=== PATIENT | female | born 1950 | race Caucasian/White ===

== ENCOUNTER 2019-04-13 15:18 | Outpatient (CLI) | payer MEDICARE, OTHER, SELFPAY ==
--- NOTE | 2019-04-13 15:04 | DI.RAD_ITS ---
EXAM: XR HIP LT COMPLETE AND AP PELVIS INDICATION: LEFT HIP PAIN M25.552. COMPARISON: No exams were available for comparison TECHNIQUE: 2D digital imaging was performed. FINDINGS: There is mild narrowing of the left hip joint space. There is spurring from the left acetabulum and left femoral head. Degenerative changes are seen involving the SI joints, left greater than right. There is mild acetabular spurring of the right hip. IMPRESSION: Moderate degenerative changes of the left hip and left SI joint.
--- NOTE | 2019-04-13 15:06 | DI.RAD_ITS ---
EXAM: XR LUMBAR SPINE COMPLETE INDICATION: LEFT LBP M54.5. COMPARISON: No exams were available for comparison TECHNIQUE: 2D digital imaging was performed. FINDINGS: There is a moderate compression fracture of L1. No additional compression fractures are seen. There is narrowing of the L3-4 and L4-5 disc spaces. There are facet degenerative changes greatest at L4- 5. IMPRESSION: L1 compression fracture. Degenerative changes of the lower lumbar spine.
[2019-04-13 17:41] LABS: ALT 35 U/L (14-59); AST 21 U/L (15-37); Albumin 3.5 g/dL (3.4-5.0); Alkaline Phosphatase 90 U/L (46-116); Anion Gap 9.2 mmol/L (3-11); BUN 18 mg/dL (7-18); Bilirubin, Total 0.4 mg/dL (0.2-1.0); CO2 26.8 mmol/L (21.0-32.0); CREATININE 0.83 mg/dL (0.55-1.02); Calcium 8.6 mg/dL (8.5-10.1); Chloride 97 mmol/L (98-107); Glucose 89 mg/dL (74-106); Potassium 4.7 mmol/L (3.5-5.1); Sodium 133 mmol/L (136-145); Total Protein 7.1 g/dL (6.4-8.2)
[2019-04-13 19:25] LABS: Vitamin D 25 Total 28.6 ng/ml (30-100)
== END 2019-04-13 15:38 ==
PROVIDERS: PCP Family Medicine; Visit Provider Family Medicine
DX: M54.5 Low back pain (principal); M48.56XD Collapsed vertebra, not elsewhere classified, lumbar region, subsequent encounter for fracture with routine healing; M47.816 Spondylosis without myelopathy or radiculopathy, lumbar region; M25.552 Pain in left hip; M16.12 Unilateral primary osteoarthritis, left hip; M53.3 Sacrococcygeal disorders, not elsewhere classified; R42 Dizziness and giddiness
CPT/HCPCS: 36415; 80053; 82306; 72110; 73502

== ENCOUNTER 2019-04-14 01:20 | Outpatient (CLI) | payer MEDICARE, OTHER, SELFPAY ==
--- NOTE | 2019-04-14 16:01 | DI.MAMMO_ITS ---
EXAM: MAMMO SCREENING CLINICAL HISTORY: screening Z12.39. TECHNIQUE: Full field digital CC and MLO mammographic images were obtained with 3D tomosynthesis and utilizing computer aided detection (CAD). COMPARISON: 2009 to 2014 FINDINGS: Breast Density - Category B - Scattered areas of fibroglandular density Masses/Architectural Distortion: None seen. Microcalcifications: No suspicious pleomorphic-type calcifications are seen. Skin Thickening/Nipple Retraction: None. Axilla: Unremarkable. IMPRESSION: 1. BI-RADS category 1, negative. No significant interval change with no specific features of maligna ncy noted. 2. Unless there is more urgent need, screening mammography is recommended, as per [employer] guidelines. A negative radiographic report should not delay biopsy if a dominant or clinically suspicious mass is present. Up to ten percent of cancers are not identified on mammography. A negative report may reinforce clinical impression. Adenosis and dense breasts may obscure an underlying neoplasm. False positive reports average 6 to 10%. Patient will receive a letter notifying them of these results.
== END 2019-04-14 01:40 ==
PROVIDERS: PCP Family Medicine; Visit Provider Family Medicine
DX: Z12.31 Encounter for screening mammogram for malignant neoplasm of breast (principal)
CPT/HCPCS: 77063; 77067

== ENCOUNTER 2019-09-08 01:34 | Outpatient (CLI) | payer MEDICARE, SELFPAY ==
--- NOTE | 2019-09-08 13:15 | DI.DEXA_ITS ---
EXAM: XR DEXA BONE DENSITY W/WO MEGAN CLINICAL HISTORY: OSTEOPENIA, M85.80 TECHNIQUE: DEXA scan was performed according to the usual protocol. COMPARISON: CR XR LUMBAR SPINE COMPLETE from 04/13/2019 FINDINGS: Findings for left hip scanning are T-score of -2.4 with left femoral neck T-score of -2.4. Prior scan of February 2008 showed left hip T-score of -1.3. Lumbar spine scanning shows T-score of -3.3, prior study of 2007 showed lumbar T-score of -2.2. Left forearm scanning shows T-score of -3.4. IMPRESSION: Findings consistent with osteoporosis according to the WHO criteria. There is a vertebral compressio n fracture noted at what appears to be L1.
== END 2019-09-08 01:54 ==
PROVIDERS: PCP Family Medicine; Visit Provider Nurse Practitioner Adult Health
DX: M81.0 Age-related osteoporosis without current pathological fracture (principal); M85.88 Other specified disorders of bone density and structure, other site
CPT/HCPCS: 77080

== ENCOUNTER 2021-06-09 03:41 | Outpatient (CLI) | payer MEDICARE, SELFPAY ==
[2021-06-09 09:54] LABS: TSH (W/Ref FT4) 1.85 uIU/mL (0.36-3.74)
[2021-06-12 06:24] LABS: Vitamin D 25 Total 31.6 ng/mL (30-100)
[2021-06-12 14:07] LABS: Thyroglobulin Antibody <1.8 IU/mL (<1.8); Thyroglobulin Tumor Marker 17 ng/mL
== END 2021-06-09 03:42 | disposition home or self-care (01) ==
LOC: LBO 03:42
PROVIDERS: PCP Family Medicine; Visit Provider Family Medicine
DX: M85.88 Other specified disorders of bone density and structure, other site (principal); Z80.8 Family history of malignant neoplasm of other organs or systems; R00.2 Palpitations
CPT/HCPCS: 36415; 82306; 84432; 84443; 86800

== ENCOUNTER 2021-07-25 00:57 | Outpatient (CLI) | payer MEDICARE, SELFPAY ==
--- NOTE | 2021-07-25 08:00 | DI.US_ITS ---
Exam(s) US THYROID EXAM: US THYROID CLINICAL HISTORY: thyroid enlargement right, fam hx thyroid neoplasm, thyroid disorder. TECHNIQUE: Ultrasound thyroid performed using standard protocol. COMPARISON: US AAA SCREENING from 04/16/2017 FINDINGS: RIGHT THYROID LOBE: Measures 1.3 cm AP x 1.1 cm wide x 4.6 cm craniocaudal There are few small benign colloid cysts. In addition, there are 2 small solid nodules right lobe. Nodule #1. This is the more superior of the 2 nodules. Size: Measures 5 millimeters wide by 3 millimeters AP Composition: Solid-2 points Echogenicity: Slightly hypoechoic compared to surrounding parenchyma-2 points Shape: Wider than taller-0 points Margin: Smooth- 0 points Echogenic Foci: None-0 points Total Points for this nodule: 4 ACR Ti-Rads Category: TR4 This nodule can be followed and does not need ultrasound-guided biopsy at this time. Nodule #2. This is located more inferiorly in the right lobe. Size: Measures 5 x 3 millimeter Composition: Solid-2 points Echogenicity: Mildly hypoechoic-2 points Shape: Wider than taller- 0 points Margin: Smooth-0 points Echogenic Foci: None-0 points Total points for this nodule: 4 ACR Ti-Rads Category: TR4. This nodule can be followed and does not need ultrasound-guided biopsy at this time. ISTHMUS: Normal thickness. There are no nodules in the isthmus. LEFT THYROID LOBE: Measures 1.3 cm AP x 1.4 wide x 4.3 cm craniocaudal Nodule #1 . This is the more superior of the 2 nodules. Size: Measures 4 millimeters wide by 3 millimeters AP. Composition: Solid-2 points Echogenicity: Isoechoic-1 points Shape: Wider than taller-0 points Margin: Smooth-0 points Echogenic Foci: None-0 points Total points for this nodule: 3 ACR Ti-Rads Category: 3. This nodule can be followed and does not need ultrasound-guided biopsy at this time. Nodule #2 . this finding is located more inferiorly Size: Measures 7 x 5 millimeter Composition: Cystic-0 points Echogenicity: Anechoic-0 points Shape: Wider than taller-0 points Margin: Smooth-0 points Echogenic Foci: None-0 points Total Points for this nodule: 0 ACR Ti-Rads Category: 1 This is a benign cyst and does not require biopsy LYMPH NODES: There is no significant adenopathy. IMPRESSION: Bilateral benign-appearing findings as described individually above. None of the nodules described above require ultrasound-guided biopsy. There is no significant lymphadenopathy. DATA REPOSITORY:
--- NOTE | 2021-07-25 08:00 | DI.MAMMO_ITS ---
Exam(s) MAMMO SCREENING EXAM: MAMMO SCREENING CLINICAL HISTORY: screening, Z12.39. TECHNIQUE: Bilateral full field digital CC and MLO mammographic images were obtained with 3D tomosyn thesis and utilizing computer aided detection (CAD). COMPARISON: Prior mammograms were reviewed, the most recent being April 2019. FINDINGS: No new significant radiograph findings in right breast. Asymmetric tissue in left breast is unchanged from prior studies. On the CC view the asymmetric dens ities are unchanged from 2012. There are no new spiculated masses nor malignant appearing microcalcification groups. There is no significant architectural distortion nor skin thickening-retraction. IMPRESSION: Stable benign findings. No radiographic evidence of malignancy. BI-RADS Category 2 - Benign Findings Breast Density - Category B - Scattered areas of fibroglandular density Breast density Category C or D implies that the patient has dense breast tissue. Dense breast tissue can make it harder to find cancer on a mammogram. Dense breast tissue is also associated with an incr eased risk of breast cancer. This information about the result of the mammogram report was provided to the patient to raise their awareness. Use this report when you speak with the patient about their risks for breast cancer, which includes their family history. At that time, you may recommend additional screening tests (Ultrasoun d or MRI) as these tests may add significant information. A negative radiographic report should not delay biopsy if a dominant or clinically suspicious mass is present. Up to ten percent of cancers are not identified on mammography. A negative report may reinforce clinical impression. Adenosis and dense breasts may obscure an underlying neoplasm. False positive reports average 6 to 10%. Patient will receive a letter notifying them of these results.
== END 2021-07-25 01:17 ==
PROVIDERS: PCP Family Medicine; Visit Provider Family Medicine
DX: Z12.31 Encounter for screening mammogram for malignant neoplasm of breast (principal); E07.9 Disorder of thyroid, unspecified; Z80.8 Family history of malignant neoplasm of other organs or systems; E04.2 Nontoxic multinodular goiter
CPT/HCPCS: 77063; 77067; 76536

== ENCOUNTER 2021-09-21 10:05 | Outpatient (REF) | payer MEDICARE, SELFPAY ==
--- NOTE | 2021-09-21 09:40 | SKI_PTH ---
PATIENT: Dora Underwood LOC: [facility] U#:[id number] AGE/SX: 70/F ROOM: RE09/21/[address]: Grant Cardoza DO : 1950 BED: DIS: 09/21/2021 SPEC #: [id number] RECD: 09/21/21 12:49 STATUS: MAGALYS REQ #: [id number] VIRAJ: 09/21/21 09:[address]: Grant Cardoza DEPT: Surgical Specimen RECD BY: Nidhi Hayward ENTERED: 09/21/21 12:50 SP TYPE: SKI OTHR DR: Sirisha Garcia MD, DC Tissues: 1 - SKIN BIOPSY(SHAVE/PUNCH) Procedures: SKIN LEVEL 4 Comments: [id number]
== END 2021-09-21 10:06 | disposition home or self-care (01) ==
LOC: LBN 10:05
PROVIDERS: PCP Family Medicine; Visit Provider Emergency Medicine
DX: L57.0 Actinic keratosis (principal); L43.8 Other lichen planus
CPT/HCPCS: 88305

== ENCOUNTER 2023-01-08 15:09 | Outpatient (REF) | payer MEDICARE, SELFPAY | END 2023-01-08 15:10 | disposition home or self-care (01) | LOC: LBN 15:09 | PROVIDERS: PCP Family Medicine; Visit Provider Nurse Practitioner Family | DX: N30.01 Acute cystitis with hematuria (principal) | CPT/HCPCS: 87077; 87086; 87186 ==

== ENCOUNTER 2023-01-16 21:23 | Outpatient (REF) | payer MEDICARE, SELFPAY ==
[2023-01-16 21:43] LABS: Bilirubin Negative (Negative); Blood Negative (Negative); Clarity Clear (Clear); Glucose Negative (Negative); Ketones Negative (Negative); Leukocyte Esterase Small (Negative); Nitrite Negative (Negative); Urobilinogen 0.2 mg/dL (Up to 0.2); pH 6.5 (5-8)
[2023-01-16 21:52] LABS: Bacteria Few HPF (Negative); C & S Indicated? No/Sq. Contamination; Crystals Negative HPF (Negative); Epithelial Cells Many HPF (Negative); Mucus Negative (Negative); RBC Negative HPF (0-2)
== END 2023-01-16 21:24 | disposition home or self-care (01) ==
LOC: LBN 21:23
PROVIDERS: PCP Family Medicine; Visit Provider Family Medicine
DX: N39.0 Urinary tract infection, site not specified (principal)
CPT/HCPCS: 81003; 81015

== ENCOUNTER 2023-01-22 15:41 | Outpatient (REF) | payer MEDICARE, SELFPAY ==
[2023-01-22 16:06] LABS: Bilirubin Negative (Negative); Blood Negative (Negative); Clarity Clear (Clear); Glucose Negative (Negative); Ketones Negative (Negative); Leukocyte Esterase Negative (Negative); Nitrite Negative (Negative); Specific Gravity 1.015 (1.005-1.025); Urobilinogen 0.2 mg/dL (Up to 0.2)
== END 2023-01-22 15:42 | disposition home or self-care (01) ==
LOC: LBN 15:41
PROVIDERS: PCP Family Medicine; Visit Provider Family Medicine
DX: R35.0 Frequency of micturition (principal)
CPT/HCPCS: 81003

== ENCOUNTER → 2023-02-07 01:18 | Outpatient (CLI) | payer MEDICARE, SELFPAY ==
--- NOTE | 2023-02-07 07:00 | DI.DEXA_ITS ---
Exam(s) XR DEXA BONE DENSITY W/WO MEGAN EXAM: XR DEXA BONE DENSITY W/WO MEGAN CLINICAL HISTORY: SCREENING FOR OSTEOPOROSIS IN POSTMENOPAUSAL WOMAN,Z78.0 TECHNIQUE: COMPARISON: CR XR DEXA BONE DENSITY W/WO MEGAN from 09/08/2019 FINDINGS: Lateral Spine Image: There are stable upper lumbar superior endplate compression deformities. Left hip: Total T-Score: -2.4. This compares to -2.4 on the prior examination. Total Z-Score: -0.8 T- and Z-scores: Findings are consistent with osteopenia. Lumbar Spine: Total T-Score: -3.0. This compares to -3.3 on the prior examination. Total Z-Score: -0.8 T- and Z-scores: Findings are consistent with osteoporosis. IMPRESSION: Osteoporosis in the lumbar spine.
--- NOTE | 2023-02-07 08:10 | DI.MAMMO_ITS ---
Exam(s) MAMMO SCREENING EXAM: MAMMO SCREENING CLINICAL HISTORY: screening,Z12.39 TECHNIQUE: Bilateral full field digital CC and MLO mammographic images were obtained with 3D tomosyn thesis and utilizing computer aided detection (CAD). COMPARISON: Available for comparison. FINDINGS: Masses/Architectural Distortion: None seen. Microcalcifications: No suspicious pleomorphic-type are seen. Skin Thickening/Nipple Retraction: None. IMPRESSION: 1. No significant interval change with no specific features of malignancy noted. 2. Unless there is more urgent need, screening mammography is recommended, as per [employer] guidelines. BI-RADS Category 1 - Negative Breast Density - Category B - Scattered areas of fibroglandular density Breast density category C or D implies that the patient has dense breast tissue. Dense breast tissue is very common and is not abnormal but dense breast tissue can make it harder to find cancer on a ma mmogram. Also, dense breast tissue may increase their breast cancer risk. This information about the result of the mammogram report was provided to the patient to raise their awareness. Use this report when you speak with the patient about their risks for breast cancer, which includes their family hist ory. At that time, you may recommend for more screening tests (Ultrasound or MRI) as they might be us eful based on their risk. A negative radiographic report should not delay biopsy if a dominant or clinically suspicious mass is present. Up to ten percent of cancers are not identified on mammography. A negative report may reinforce clinical impression. Adenosis and dense breasts may obscure an underlying neoplasm. False positive reports average 6 to 10%. Patient will receive a letter notifying them of these results.
== END ==
PROVIDERS: PCP Family Medicine; Visit Provider Family Medicine
DX: Z78.0 Asymptomatic menopausal state (principal); Z12.31 Encounter for screening mammogram for malignant neoplasm of breast; Z13.820 Encounter for screening for osteoporosis; M81.0 Age-related osteoporosis without current pathological fracture
CPT/HCPCS: 77063; 77067; 77080

== ENCOUNTER 2023-08-27 05:19 | Outpatient (CLI) | payer MEDICARE, SELFPAY ==
[2023-08-27 07:45] LABS: HCT 38.2 % (36.0-46.0); HGB 13.2 g/dL (11.2-15.7); MCH 31.5 pg (27.0-33.0); MCHC 34.6 % (32.0-36.0); MCV 91 fL (80-95); Platelet Count 259 10^3/uL (130-400); RBC 4.19 10^6/uL (3.93-5.22); RDW 12.7 % (11.7-14.6); RDW-SD 41.8 fL; WBC 3.94 10^3/uL (4.4-10.8)
[2023-08-27 08:37] LABS: ALT 24 U/L (14-59); AST 20 U/L (15-37); Albumin 3.7 g/dL (3.4-5.0); Alkaline Phosphatase 93 U/L (46-116); Anion Gap 9.4 mmol/L (3-11); BUN 16 mg/dL (7-18); Bilirubin, Total 0.9 mg/dL (0.2-1.0); CO2 26.6 mmol/L (21.0-32.0); CREATININE 0.7 mg/dL (0.55-1.02); Calculated LDL 145 mg/dL (<100); Chloride 101 mmol/L (98-107); Cholesterol 213 mg/dL (<200); Estimated GFR 91.83 (mL/min/1.73m2); Glucose 88 mg/dL (74-106); HDL Cholesterol 59 mg/dL (40-60); Magnesium 1.9 mg/dL (1.8-2.4); Potassium 3.9 mmol/L (3.5-5.1); Sodium 137 mmol/L (136-145); Total Protein 7.3 g/dL (6.4-8.2); Triglyceride 49 mg/dL (<150); Vitamin B12 990 pg/mL (193-986)
[2023-08-27 08:52] LABS: Vitamin D 25 Total 49.1 ng/mL (30-100)
== END 2023-08-27 05:20 | disposition home or self-care (01) ==
PROVIDERS: PCP Family Medicine; Visit Provider Family Medicine
DX: I10 Essential (primary) hypertension (principal); R41.89 Other symptoms and signs involving cognitive functions and awareness
CPT/HCPCS: 36415; 80053; 80061; 82306; 85027; 82607; 83735

== ENCOUNTER 2023-09-05 16:41 | Outpatient (REF) | payer MEDICARE, SELFPAY ==
[2023-09-05 20:32] LABS: Bilirubin Negative (Negative); Blood Small (Negative); Clarity Clear (Clear); Glucose Negative (Negative); Ketones Negative (Negative); Leukocyte Esterase Large (Negative); Nitrite Negative (Negative); Urobilinogen 0.2 mg/dL (Up to 0.2); pH 7.5 (5-8)
[2023-09-05 20:36] LABS: WBC >50 HPF (0-5)
[2023-09-05 20:37] LABS: Bacteria Few HPF (Negative); C & S Indicated? No/Sq. Contamination; Casts Negative LPF (Negative); Crystals Negative HPF (Negative); Epithelial Cells Many HPF (Negative); Mucus Negative (Negative)
== END 2023-09-05 16:42 | disposition home or self-care (01) ==
LOC: NCHCN 16:41
PROVIDERS: PCP Family Medicine; Visit Provider Nurse Practitioner Family
DX: R35.0 Frequency of micturition (principal); R82.89 Other abnormal findings on cytological and histological examination of urine
CPT/HCPCS: 81003; 81015

== ENCOUNTER 2023-09-06 10:52 | Outpatient (REF) | payer MEDICARE, SELFPAY | END 2023-09-06 10:53 | disposition home or self-care (01) | LOC: LBN 10:52 | PROVIDERS: PCP Family Medicine; Visit Provider Nurse Practitioner Family | DX: R31.9 Hematuria, unspecified (principal); R82.89 Other abnormal findings on cytological and histological examination of urine | CPT/HCPCS: 87086 ==

== ENCOUNTER 2023-09-19 16:35 | Outpatient (REF) | payer MEDICARE, SELFPAY ==
[2023-09-19 18:34] LABS: Bilirubin Negative (Negative); Blood Negative (Negative); Clarity Clear (Clear); Glucose Negative (Negative); Ketones Negative (Negative); Leukocyte Esterase Small (Negative); Nitrite Negative (Negative); Urobilinogen 0.2 mg/dL (Up to 0.2)
[2023-09-19 18:36] LABS: Bacteria Few HPF (Negative); C & S Indicated? No/Sq. Contamination; Casts Negative LPF (Negative); Crystals Negative HPF (Negative); Epithelial Cells Moderate HPF (Negative); Mucus Negative (Negative); RBC Negative HPF (0-2)
== END 2023-09-19 16:36 | disposition home or self-care (01) ==
LOC: NCHCN 16:35
PROVIDERS: PCP Family Medicine; Visit Provider Family Medicine
DX: N39.0 Urinary tract infection, site not specified (principal)
CPT/HCPCS: 81003; 81015

== ENCOUNTER 2023-09-25 15:47 | Outpatient (REF) | payer MEDICARE, SELFPAY ==
--- OUTSIDE RECORDS SUMMARY | 2023-09-25 15:53 | XMS_ITS | Continuity of Care Document ---
Author Name Unknown Organization 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 Name Role Phone VERENA MACHADO DC, MISBAH Martinez Primary Care Physician Encounter [facility]TT[facility] FIN NBR [id number] Date(s): 09/08/23 - 09/08/[address] [address] Encounter Diagnosis Urinary tract infection, site not specified(Final) - Discharge Disposition: Home or Self Care Attending Physician: Kareem Cardenas PA-C Admitting Physician: Kareem Cardenas PA-C Allergies, Adverse Reactions, Alerts Substance Reaction Severity Status sulfa drugs Headache Mild Active Assessment and Plan Diagnostic Tests Pending * Urine Culture 09/08/23 Medications estradiol 0.5 mg oral tablet 0 Refill(s) Start Date: 09/08/23 Status: Ordered nitrofurantoin macrocrystals-monohydrate 100 mg oral capsule 100 mg = 1 cap, Oral, BID, # 20 cap, 0 Refill(s), Pharmacy: [facility] #[id number] Start Date: 09/08/23 Stop Date: 09/18/23 Status: Ordered Patient Care team information Care Team Personnel Name: VERENA MACHADO DC, MISBAH Martinez Position: No Access Member Role: Primary Care Physician Address: Address: [address] [id number] Care Team Related Persons Name: GINO BOWER Address: Home [address] [place] [address] [facility] Name: GINO BOWER Address: Home [address] [place] [address] [facility] Name: ALBINO BOWER Address: Home [address] [place], [place] [id number] [facility] Name: ALBINO BOWER Address: Home [address] [place] [phone] [facility] Name: MARK BOWER Address: [place] [address] [place], [place] [id number] [facility] Name: MARK BOWER Address: [address] [id number] [facility]
--- OUTSIDE RECORDS SUMMARY | 2023-09-25 15:53 | XMS_ITS | Continuity of Care Document ---
Author Name Unknown Organization [facility] Ambulatory Clinics Address [address] [place] [address] Care Team Providers Care Adjustment Examiner Name Role Phone VERENA MACHADO,DC, MISBAH Martinez Primary Care Physician Encounter [facility] NBR [id number] Date(s): 09/08/23 - 09/08/23 [facility] Ambulatory Clinics [address], [place] [address] [place] Encounter Diagnosis Urinary tract infection(Discharge Diagnosis) - 09/08/23 Discharge Disposition: Home or Self Care Attending Physician: Kareem Cardenas PA-C Allergies, Adverse Reactions, Alerts Substance Reaction Severity Status sulfa drugs Headache Mild Active Assessment and Plan Extracted from: Title:Office Visit Note Author:Kareem Cardenas PA-C Date:09/08/23 1.??Urinary tract infection? ?N39.0 Ordered: nitrofurantoin macrocrystals-monohydrate 100 mg oral capsule, 100 mg = 1 cap, Oral, BID, # 20 cap, 0 Refill(s), Pharmacy: [facility] #[id number] nitrofurantoin, 100 mg, Oral, Tab, BID, Antibiotic Indication Urinary Tract Infection, First Dose: 09/08/23 21:00:00 EDT, Routine Urine Culture, Urine, Clean Catch, Routine collect, RT - Routine, 09/08/23, Once, Nurse collect, Urinary tract infection, Order for future visit, Not Required ?? Medications estradiol 0.5 mg oral tablet 0 Refill(s) Start Date: 09/08/23 Status: Ordered nitrofurantoin macrocrystals-monohydrate 100 mg oral capsule 100 mg = 1 cap, Oral, BID, # 20 cap, 0 Refill(s), Pharmacy: [facility] #[id number] Start Date: 09/08/23 Stop Date: 09/18/23 Status: Ordered Results Laboratory List Name Date .Urinalysis POCT 09/08/23 Most recent to oldest [Reference Range]: 1 Method of Collect POC clean catch *NA* (09/08/23 4:44 PM) Specific Pollock, Ur POC 1.020 *NA* (09/08/23 4:44 PM) Specimen Color POC [Yellow] Yellow (09/08/23 4:44 PM) Glucose, Urine POC Negative mg/dL *NA* (09/08/23 4:44 PM) Bilirubin, Urine POC [Negative] Negative (09/08/23 4:44 PM) Ketones, Urine POC [Negative mg/dL] 40 m g/dL *ABN* (09/08/23 4:44 PM) Blood, Urine POC [Negative] Moderate *ABN* (09/08/23 4:44 PM) pH, Urine POC 6.00 *NA* (09/08/23 4:44 PM) Protein, Urine POC [Negative mg/dL] 30 m g/dL *ABN* (09/08/23 4:44 PM) Urobilinogen, Urine POC [0.2] 0.2 (09/08/23 4:44 PM) Nitrite, Urine POC [Negative] Positive *ABN* (09/08/23 4:44 PM) Leuk Esterase, Urine POC [Negative] Larg e *ABN* (09/08/23 4:44 PM) Clarity, Urine POC [Clear] Cloudy *ABN* (09/08/23 4:44 PM) Vital Signs Most recent to oldest [Reference Range]: 1 Temperature Tympanic [36.6-38.1 Deg C] 3 6.9 Deg C (09/08/23 4:47 PM) Peripheral Pulse Rate [60-100 bpm] 84 bp m (09/08/23 4:47 PM) Respiratory Rate [12-24 br/min] 20 br/mi n (09/08/23 4:47 PM) Blood Pressure [90-140/60-90 mmHg] 148/8 3mmHg *HI* (09/08/23 4:47 PM) Mean Arterial Pressure, Cuff [65-140 mmH g] 105 mmHg (09/08/23 4:47 PM) Hospital Discharge Instructions Patient Education 09/08/2023 16:36:01 Urinary Tract Infection, Adult Urinary Tract Infection, Adult A urinary tract infection (UTI) is an infection of any part of the urinary tract. The urinary tractincludes the kidneys, ureters, bladder, and urethra. These organs make, store, and get rid of urinein the body. An upper UTI affects the ureters and kidneys. A lower UTI affects the bladder and urethra. What are the causes? Most urinary tract infections are caused by bacteria in your genital area around your urethra, where urine leaves your body. These bacteria grow and cause inflammation of your urinary tract. What increases the risk? You are more likely to develop this condition if: ??? You have a urinary catheter that stays in place. ??? You are not able to control when you urinate or have a bowel movement (incontinence). ??? You are female and you: ??? Use a spermicide or diaphragm for control. ??? Have low estrogen levels. ??? Are . ??? You have certain genes that increase your risk. ??? You are sexually active. ??? You take antibiotic medicines. ??? You have a condition that causes your flow of urine to slow down, such as: ??? An enlarged prostate, if you are male. ??? Blockage in your urethra. ??? A kidney stone. ??? A nerve condition that affects your bladder control (neurogenic bladder). ??? Not getting enough to drink, or not urinating often. ??? You have certain medical conditions, such as: ??? Diabetes. ??? A weak disease-fighting system (immunesystem). ??? Sickle cell disease. ??? Gout. ??? Spinal cord injury. What are the signs or symptoms? Symptoms of this condition include: ??? Needing to urinate right away (urgency). ??? Frequent urination. This may include small amounts of urine each time you urinate. ??? Pain or burning with urination. ??? Blood in the urine. ??? Urine that smells bad or unusual. ??? Trouble urinating. ??? Cloudy urine. ??? Vaginal discharge, if you are female. ??? Pain in the abdomen or the lower back. You may also have: ??? Vomiting or a decreased appetite. ??? Confusion. ??? Irritability or tiredness. ??? A fever or chills. ??? Diarrhea. The first symptom in older adults may be confusion. In some cases, they may not have any symptoms until the infection has worsened. How is this diagnosed? This condition is diagnosed based on your medical history and a physical exam. You may also have other tests, including: ??? Urine tests. ??? Blood tests. ??? Tests for STIs (sexually transmitted infections). If you have had more than one UTI, a cystoscopy or imaging studies may be done to determine the cause of the infections. How is this treated? Treatment for this condition includes: ??? Antibiotic medicine. ??? Hlqs-wzq-jfrwyjb medicines to treat discomfort. ??? Drinking enough water to stay hydrated. If you have frequent infections or have other conditions such as a kidney stone, you may need to see a health care provider who specializes in the urinary tract (urologist). In rare cases, urinary tract infections can cause sepsis. Sepsis is a life- threatening condition that occurs when the body responds to an infection. Sepsis is treated in the hospital with IV antibiotics, fluids, and other medicines. Follow these instructions at home: Medicines ??? Take zthw-amr-wsbisza and prescription medicines only as told by your health care provider. ??? If you were prescribed an antibiotic medicine, take it as told by your health care provider. Donot stop using the antibiotic even if you start to feel better. General instructions ??? Make sure you: ??? Empty your bladder often and completely. Do not hold urine for long periods of time. ??? Empty your bladder after sex. ??? Wipe from front to back after urinating or having a bowel movement if you are female. Use each tissue only one time when you wipe. ??? Drink enough fluid to keep your urine pale yellow. ??? Keep all follow-up visits. This is important. Contact a health care provider if: ??? Your symptoms do not get better after 1???2 days. ??? Your symptoms go away and then return. Get help right away if: ??? You have severe pain in your back or your lower abdomen. ??? You have a fever or chills. ??? You have nausea or vomiting. Summary ??? A urinary tract infection (UTI) is an infection of any part of the urinary tract, which includes the kidneys, ureters, bladder, and urethra. ??? Most urinary tract infections are caused by bacteria in your genital area. ??? Treatment for this condition often includes antibiotic medicines. ??? If you were prescribed an antibiotic medicine, take it as told by your health care provider. Donot stop using the antibiotic even if you start to feel better. ??? Keep all follow-up visits. This is important. This information is not intended to replace advice given to you by your health care provider. Make sure you discuss any questions you have with your health care provider. Document Revised: 11/04/2020 Document Reviewed: 11/04/2020 [employer] Patient Education ?? 2022 [employer]. Physician Outpatient Note * Kareem Cardenas PA-C: PERFORM Event Display: Office Clinic Note Physician Authored Date: [id number] JULIO CÉSAR BOWER :1950 Age:72 years Sex:Female Visit Date:09/08/2023 Chief Complaint Thinks she has a UTI. Reports Saturday symptoms started. Minimal urination. Urinary hesitancy, ??and urgency. Saw provider and had urine dipped but was told would not have answer until Saturday History of Present Illness 72-year-old female patient who presents to the emergency department??complaining of urinary tract infection symptoms.?? The patient reports her??abrupt onset of urinary frequency, with incomplete emptying,??for the last??5 days,??the symptoms are consistent with her prior episodes of urinary tract infection.?? She reports no systemic complaints of fevers or chills, no belly pain, nausea or vomiting.?? She reports no dysuria, change in stooling. Review of Systems Constitutional:??no??fever,??no??chills,??no??sweats,??no??weakness Respiratory:??no??shortness of breath,??no??cough Cardiovascular:??no??chest pain Additional ROS info: Except as noted in the above Review of Systems and in the History of Present Illness all other systems have been reviewed and are negative or noncontributory.?? Physical Exam Vitals & Measurements T:??36.9?C ??(Tympanic)?? HR:??84??(Peripheral)?? RR:??20?? BP:??148/83?? SpO2:??100%?? Vital signs reviewed,?? They appear within normal limits, the patient appears her documented age, in no acute distress ?? GENERAL APPEARANCE: Awake and alert. Cooperative. No acute distress. ?? HEAD: Normocephalic. Atraumatic. ?? EYES: EOM's grossly intact. Sclera anicteric. ?? ENT: Mucous membranes are moist. Tolerates saliva. No trismus. ?? NECK: Supple. No meningismus. Trachea midline. ?? HEART: RRR, no m/r/g. Radial pulses 2+. ?? LUNGS: Respirations unlabored. CTAB, no w/r/r. ?? EXTREMITIES: No acute deformities. ?? SKIN: Warm and dry. ?? NEUROLOGICAL: No gross facial drooping. Moves all 4 extremities spontaneously. ?? PSYCHIATRIC: Normal mood. Medical Decision Making: ??the patient is seen and examined, she presents to the emergency department with UTI symptoms,??similar to her prior episodes.?? Afebrile, in no acute distress with an essentially normal exam.?? Kwlxb-sq-ygfw testing of the urine here in the emergency department is positive for urinary tract infection.?? A urine sample was sent to the lab for culture,??the patient will be initiated on nitrofurantoin, 100 mg twice a day,??first dose given in the??urgent care, dispensed second dose for the morning,??prescription referred to??patient??pharmacy of choice.?? She will be discharged in stable condition ?? Nursing records reviewed, Agree with nursing records, Old chart reviewed, Medication list reviewed. ?? I agree with and approve the nursing order protocols initiated on the patient during this visit., Elena reviewed and approve the verbal orders as documented for this encounter. ?? Please note this report has been produced using speech recognition software and may contain errors related to that system including errors in grammar, punctuation, and spelling. It may also include errors in words and phrases. ?? I, Kareem Cardenas PA-C am the paper winder of record. ? Diagnosis:??urinary tract infection ?? Disposition:??discharge Assessment/Plan 1.??Urinary tract infection??N39.0 Ordered: nitrofurantoin macrocrystals-monohydrate 100 mg oral capsule, 100 mg = 1 cap, Oral, BID, # 20 cap, 0 Refill(s), Pharmacy: [facility] #[id number] nitrofurantoin, 100 mg, Oral, Tab, BID, Antibiotic Indication Urinary Tract Infection, First Dose: 09/08/23 21:00:00 EDT, Routine Urine Culture, Urine, Clean Catch, Routine collect, RT - Routine, 09/08/23, Once, Nurse collect, Urinary tract infection, Order for future visit, Not Required ?? Patient Instructions Thank you for visiting our Urgent Care today. Please keep in mind that discharge from the emergencydepartment does not mean that there is nothing wrong - it simply means that we have not identified an emergency condition that requires further evaluation or treatment in the hospital. You should always plan to follow up with primary care for re-evaluation of your condition in the next 2-3 days. Ifyou have been referred to a specialist, please call as soon as possible (today or tomorrow) to schedule your follow up appointment at the appropriate time. Specific instructions related to your condition: ?? Please monitor for worsening or changing symptoms. Please take prescribed medications as directed. Continue taking your routine medication as prescribed. Please follow-up with your primary care doctor within the next few days to week to ensure ongoing improvement, and for further testing if indicated or needed. Please feel free to return to this emergency department or seek out an alternative emergency department for acutely worsening or changing symptoms, increasing worsening pain, fevers [id number], or if you have further questions or concerns. ?? People present with illnesses and injuries in different ways, and it is always possible that we have missed something. You may always return for re-evaluation if symptoms worsen or if they are not improving or if you develop new/different symptoms. ?? Due to the current nature of these unprecedented times, if you are unable to follow up with your primary care provider or specialist as instructed within the prescribed time, please know the providers in the??urgent care at [facility] are available for follow-up video visits. ?? Again, thank you for choosing our Urgent Care. We hope that you feel better. Future Orders Urine Culture, Urine, Clean Catch, Routine collect, RT - Routine, 09/08/23, Once, Nurse collect, Urinary tract infection, Order for future visit, Not Required Problem List/Past Medical History Ongoing No qualifying data Historical No qualifying data Medications estradiol 0.5 mg oral tablet nitrofurantoin, 100 mg, Oral, BID nitrofurantoin macrocrystals-monohydrate 100 mg oral capsule, 100 mg= 1 cap, Oral, BID Allergies sulfa drugs??(Headache) Lab Results Test Name Test Result Date/Time Method of Collect POC clean catch 09/08/2023 16:44 EDT Specimen Color POC Yellow 09/08/2023 16:44 EDT Clarity, Urine POC Cloudy 09/08/2023 16:44 EDT Glucose, Urine POC Negative 09/08/2023 16:44 EDT Bilirubin, Urine POC Negative 09/08/2023 16:44 EDT Ketones, Urine POC 40 09/08/2023 16:44 EDT Specific Pollock, Ur POC 1.020 09/08/2023 16:44 EDT pH, Urine POC 6.00 09/08/2023 16:44 EDT Protein, Urine POC 30 09/08/2023 16:44 EDT Urobilinogen, Urine POC 0.2 09/08/2023 16:44 EDT Nitrite, Urine POC Positive 09/08/2023 16:44 EDT Blood, Urine POC Moderate 09/08/2023 16:44 EDT Leuk Esterase, Urine POC Large 09/08/2023 16:44 EDT Electronically Signed on 09/08/2023 17:35 EDT Kareem Cardenas PA-C Outpatient Summary note * Kareem Cardenas PA-C: PERFORM Event Display: Ambulatory Patient Summary Authored Date: [id number] JULIO CÉSAR BOWER :1950 Age:72 years Sex:Female Visit Date:09/08/2023 Ambulatory Visit Instructions We would like to thank you for allowing us to assist you with your healthcare needs. The following includes patient education materials and information regarding your injury/illness. Your Next Steps Instructions From Your Care Team Thank you for visiting our Urgent Care today. Please keep in mind that discharge from the emergencydepartment does not mean that there is nothing wrong - it simply means that we have not identified an emergency condition that requires further evaluation or treatment in the hospital. You should always plan to follow up with primary care for re-evaluation of your condition in the next 2-3 days. Ifyou have been referred to a specialist, please call as soon as possible (today or tomorrow) to schedule your follow up appointment at the appropriate time. Specific instructions related to your condition: ?? Please monitor for worsening or changing symptoms. Please take prescribed medications as directed. Continue taking your routine medication as prescribed. Please follow-up with your primary care doctor within the next few days to week to ensure ongoing improvement, and for further testing if indicated or needed. Please feel free to return to this emergency department or seek out an alternative emergency department for acutely worsening or changing symptoms, increasing worsening pain, fevers [id number], or if you have further questions or concerns. ?? People present with illnesses and injuries in different ways, and it is always possible that we have missed something. You may always return for re-evaluation if symptoms worsen or if they are not improving or if you develop new/different symptoms. ?? Due to the current nature of these unprecedented times, if you are unable to follow up with your primary care provider or specialist as instructed within the prescribed time, please know the providers in the??urgent care at [facility] are available for follow-up video visits. ?? Again, thank you for choosing our Urgent Care. We hope that you feel better. You Need to Complete the Following Urine Culture, Urine, Clean Catch, Routine collect, RT - Routine, 09/08/23, Once, Nurse collect, Urinary tract infection, Order for future visit, Not Required Medications What How Much When Why Instructions New nitrofurantoin (nitrofurantoin macrocrystals-monohydrate 100 mg oral capsule) 1 Capsules Oral (given by mouth) 2 times a day Urinary tract infection Duration: 10 Days Pickup at [facility] #[id number] Unchanged estradiol (estradiol 0.5 mg oral tablet) Pharmacy Information [facility] #[id number]: [address], [place] [phone] Your Summary Your Diagnosis Urinary tract infection Outstanding Tests .Urinalysis POCT Tests Performed Test Name Test Result Date/Time Method of Collect POC clean catch 09/08/2023 16:44 EDT Specimen Color POC Yellow 09/08/2023 16:44 EDT Clarity, Urine POC Cloudy 09/08/2023 16:44 EDT Glucose, Urine POC Negative 09/08/2023 16:44 EDT Bilirubin, Urine POC Negative 09/08/2023 16:44 EDT Ketones, Urine POC 40 09/08/2023 16:44 EDT Specific Pollock, Ur POC 1.020 09/08/2023 16:44 EDT pH, Urine POC 6.00 09/08/2023 16:44 EDT Protein, Urine POC 30 09/08/2023 16:44 EDT Urobilinogen, Urine POC 0.2 09/08/2023 16:44 EDT Nitrite, Urine POC Positive 09/08/2023 16:44 EDT Blood, Urine POC Moderate 09/08/2023 16:44 EDT Leuk Esterase, Urine POC Large 09/08/2023 16:44 EDT Your Care Team Attending Physician - Kareem Cardenas PA-C Discharge Vitals Temperature??(Tympanic) 98.4 ??F (36.9 ??C) Heart Rate??(Peripheral) 84 Respiratory Rate?? 20 Blood Pressure?? 148/83?? SpO2?? 100% Allergies sulfa drugs??(Headache) Education Materials Urinary Tract Infection, Adult A urinary tract infection (UTI) is an infection of any part of the urinary tract. The urinary tractincludes the kidneys, ureters, bladder, and urethra. These organs make, store, and get rid of urinein the body. An upper UTI affects the ureters and kidneys. A lower UTI affects the bladder and urethra. What are the causes? Most urinary tract infections are caused by bacteria in your genital area around your urethra, where urine leaves your body. These bacteria grow and cause inflammation of your urinary tract. What increases the risk? You are more likely to develop this condition if: ? You have a urinary catheter that stays in place. ? You are not able to control when you urinate or have a bowel movement (incontinence). ? You are female and you: ? Use a spermicide or diaphragm for control. ? Have low estrogen levels. ? Are . ? You have certain genes that increase your risk. ? You are sexually active. ? You take antibiotic medicines. ? You have a condition that causes your flow of urine to slow down, such as: ? An enlarged prostate, if you are male. ? Blockage in your urethra. ? A kidney stone. ? A nerve condition that affects your bladder control (neurogenic bladder). ? Not getting enough to drink, or not urinating often. ? You have certain medical conditions, such as: ? Diabetes. ? A weak disease-fighting system (immunesystem). ? Sickle cell disease. ? Gout. ? Spinal cord injury. What are the signs or symptoms? Symptoms of this condition include: ? Needing to urinate right away (urgency). ? Frequent urination. This may include small amounts of urine each time you urinate. ? Pain or burning with urination. ? Blood in the urine. ? Urine that smells bad or unusual. ? Trouble urinating. ? Cloudy urine. ? Vaginal discharge, if you are female. ? Pain in the abdomen or the lower back. You may also have: ? Vomiting or a decreased appetite. ? Confusion. ? Irritability or tiredness. ? A fever or chills. ? Diarrhea. The first symptom in older adults may be confusion. In some cases, they may not have any symptoms until the infection has worsened. How is this diagnosed? This condition is diagnosed based on your medical history and a physical exam. You may also have other tests, including: ? Urine tests. ? Blood tests. ? Tests for STIs (sexually transmitted infections). If you have had more than one UTI, a cystoscopy or imaging studies may be done to determine the cause of the infections. How is this treated? Treatment for this condition includes: ? Antibiotic medicine. ? Kwul-mat-ntuxcwq medicines to treat discomfort. ? Drinking enough water to stay hydrated. If you have frequent infections or have other conditions such as a kidney stone, you may need to see a health care provider who specializes in the urinary tract (urologist). In rare cases, urinary tract infections can cause sepsis. Sepsis is a life- threatening condition that occurs when the body responds to an infection. Sepsis is treated in the hospital with IV antibiotics, fluids, and other medicines. Follow these instructions at home: Medicines ? Take gjjf-qdx-amsryjf and prescription medicines only as told by your health care provider. ? If you were prescribed an antibiotic medicine, take it as told by your health care provider. Do notstop using the antibiotic even if you start to feel better. General instructions ? Make sure you: ? Empty your bladder often and completely. Do not hold urine for long periods of time. ? Empty your bladder after sex. ? Wipe from front to back after urinating or having a bowel movement if you are female. Use each tissue only one time when you wipe. ? Drink enough fluid to keep your urine pale yellow. ? Keep all follow-up visits. This is important. Contact a health care provider if: ? Your symptoms do not get better after 1???2 days. ? Your symptoms go away and then return. Get help right away if: ? You have severe pain in your back or your lower abdomen. ? You have a fever or chills. ? You have nausea or vomiting. Summary ? A urinary tract infection (UTI) is an infection of any part of the urinary tract, which includes the kidneys, ureters, bladder, and urethra. ? Most urinary tract infections are caused by bacteria in your genital area. ? Treatment for this condition often includes antibiotic medicines. ? If you were prescribed an antibiotic medicine, take it as told by your health care provider. Do notstop using the antibiotic even if you start to feel better. ? Keep all follow-up visits. This is important. This information is not intended to replace advice given to you by your health care provider. Make sure you discuss any questions you have with your health care provider. Document Revised: 11/04/2020 Document Reviewed: 11/04/2020 [employer] Patient Education ?? 2022 [employer]. Electronically Signed on: 09/08/2023 17:36 EDTSigned by:DAVID Cardenas PA-C: PERFORM Event Display: Ambulatory Patient Summary Authored Date: [id number] JULIO CÉSAR BOWER :1950 Age:72 years Sex:Female Visit Date:09/08/2023 Ambulatory Visit Instructions We would like to thank you for allowing us to assist you with your healthcare needs. The following includes patient education materials and information regarding your injury/illness. Your Next Steps Instructions From Your Care Team Thank you for visiting our Urgent Care today. Please keep in mind that discharge from the emergencydepartment does not mean that there is nothing wrong - it simply means that we have not identified an emergency condition that requires further evaluation or treatment in the hospital. You should always plan to follow up with primary care for re-evaluation of your condition in the next 2-3 days. Ifyou have been referred to a specialist, please call as soon as possible (today or tomorrow) to schedule your follow up appointment at the appropriate time. Specific instructions related to your condition: ?? Please monitor for worsening or changing symptoms. Please take prescribed medications as directed. Continue taking your routine medication as prescribed. Please follow-up with your primary care doctor within the next few days to week to ensure ongoing improvement, and for further testing if indicated or needed. Please feel free to return to this emergency department or seek out an alternative emergency department for acutely worsening or changing symptoms, increasing worsening pain, fevers [id number], or if you have further questions or concerns. ?? People present with illnesses and injuries in different ways, and it is always possible that we have missed something. You may always return for re-evaluation if symptoms worsen or if they are not improving or if you develop new/different symptoms. ?? Due to the current nature of these unprecedented times, if you are unable to follow up with your primary care provider or specialist as instructed within the prescribed time, please know the providers in the??urgent care at [facility] are available for follow-up video visits. ?? Again, thank you for choosing our Urgent Care. We hope that you feel better. You Need to Complete the Following Urine Culture, Urine, Clean Catch, Routine collect, RT - Routine, 09/08/23, Once, Nurse collect, Urinary tract infection, Order for future visit, Not Required Medications What How Much When Why Instructions New nitrofurantoin (nitrofurantoin macrocrystals-monohydrate 100 mg oral capsule) 1 Capsules Oral (given by mouth) 2 times a day Urinary tract infection Duration: 10 Days Pickup at [facility] #[id number] Unchanged estradiol (estradiol 0.5 mg oral tablet) Pharmacy Information [facility] #[id number]: [address] [place], [place] [id number] [phone] Your Summary Your Diagnosis Urinary tract infection Outstanding Tests .Urinalysis POCT Tests Performed Test Name Test Result Date/Time Method of Collect POC clean catch 09/08/2023 16:44 EDT Specimen Color POC Yellow 09/08/2023 16:44 EDT Clarity, Urine POC Cloudy 09/08/2023 16:44 EDT Glucose, Urine POC Negative 09/08/2023 16:44 EDT Bilirubin, Urine POC Negative 09/08/2023 16:44 EDT Ketones, Urine POC 40 09/08/2023 16:44 EDT Specific Pollock, Ur POC 1.020 09/08/2023 16:44 EDT pH, Urine POC 6.00 09/08/2023 16:44 EDT Protein, Urine POC 30 09/08/2023 16:44 EDT Urobilinogen, Urine POC 0.2 09/08/2023 16:44 EDT Nitrite, Urine POC Positive 09/08/2023 16:44 EDT Blood, Urine POC Moderate 09/08/2023 16:44 EDT Leuk Esterase, Urine POC Large 09/08/2023 16:44 EDT Your Care Team Attending Physician - Kareem Ronald, PA-C Discharge Vitals Temperature??(Tympanic) 98.4 ??F (36.9 ??C) Heart Rate??(Peripheral) 84 Respiratory Rate?? 20 Blood Pressure?? 148/83?? SpO2?? 100% Allergies sulfa drugs??(Headache) Electronically Signed on: 09/08/2023 17:35 EDTSigned by:DAVID Patient Care team information Care Team Personnel Name: VERENA MACHADO,NIKA, MISBAH Martinez Position: No Access Member Role: Primary Care Physician Address: Address: [address] Care Team Related Persons Name: GINO BOWER Address: [address] Name: GINO BOWER Address: [address] Name: ALBINO BOWER Address: Home [address] [place] [id number] [facility] Name: ALBINO BOWER Address: [address] [id number] [facility] Name: MARK BOWER Address: Home [address], [place] [id number] [facility] Name: MARK BOWER Address: Home [address], [place] [id number] [facility]
[2023-09-25 20:58] LABS: Bilirubin Negative (Negative); Blood Negative (Negative); Clarity Clear (Clear); Glucose Negative (Negative); Ketones Negative (Negative); Leukocyte Esterase Negative (Negative); Nitrite Negative (Negative); Urobilinogen 0.2 mg/dL (Up to 0.2)
== END 2023-09-25 15:48 | disposition home or self-care (01) ==
LOC: LBN 15:47
PROVIDERS: PCP Family Medicine; Visit Provider Family Medicine
DX: R30.0 Dysuria (principal)
CPT/HCPCS: 81003

== ENCOUNTER → 2023-10-11 01:14 | Outpatient (CLI) | payer MEDICARE, SELFPAY ==
--- NOTE | 2023-10-11 09:49 | DI.RAD_ITS ---
Exam(s) XR LUMBAR SPINE COMPLETE EXAM: XR LUMBAR SPINE COMPLETE CLINICAL HISTORY: low back pain, M54.50. TECHNIQUE: 2D digital imaging was performed. COMPARISON: CR XR LUMBAR SPINE COMPLETE from 04/13/2019 CR XR DEXA BONE DENSITY W/WO MEGAN from 02/07/2023 FINDINGS: Five views: There are again noted compression fractures of L1 and L2 which were evident on her bone density study of 02/07/2023. The L2 superior endplate compression fracture was not evident on plain films of 09/2019 but the L1 compression fracture was evident at that time. Again noted is advanced disc space narrowing at L4-5 level, without listhesis at this level. There i s again noted mild anterolisthesis of L3 upon L4 related to facet arthropathy. No other slippages. No osseous lesions evident. Mild facet arthropathy. IMPRESSION: Multilevel findings as described above but none of which appear new since studies listed above. DATA REPOSITORY: RADIATION DOSE DELIVERED:
== END ==
PROVIDERS: PCP Family Medicine; Visit Provider Family Medicine
DX: M54.50 Low back pain, unspecified (principal)
CPT/HCPCS: 72110

== ENCOUNTER → 2023-10-21 02:28 | Outpatient (CLI) | payer MEDICARE, SELFPAY ==
--- NOTE | 2023-10-21 06:45 | DI.RAD_ITS ---
Exam(s) XR LUMBAR SPINE FLEX/EXT ONLY EXAM: XR LUMBAR SPINE FLEX/EXT ONLY CLINICAL HISTORY: ? SLIPPAGE L3-4,spondylolisthesis,m43.16. TECHNIQUE: 2D digital imaging was performed. COMPARISON: CR XR DEXA BONE DENSITY W/WO MEGAN from 02/07/2023 FINDINGS: Two views There is a compression fracture of L1 approximately 50 percent.. This may have slightly increased fr om 02/07/2023 lateral image of DEXA scan at that time. There is also compression fracture at superio r endplate of L2 again noted, unchanged. No other compression fractures but there is mild anterolist hesis of L3 upon L4 due to facet arthropathy and there is multilevel disc space narrowing at L3-4 and L4-5 and less so at L5-S1 levels. IMPRESSION: As above. DATA REPOSITORY: RADIATION DOSE DELIVERED:
== END ==
PROVIDERS: PCP Family Medicine; Visit Provider Family Medicine
DX: M43.16 Spondylolisthesis, lumbar region (principal)
CPT/HCPCS: 72120

== ENCOUNTER → 2023-10-31 00:53 | Outpatient (CLI) | payer MEDICARE, SELFPAY ==
--- NOTE | 2023-10-31 07:30 | DI.MRI_ITS ---
Exam(s) MR LUMBAR SPINE WO EXAM: MR LUMBAR SPINE WO CLINICAL HISTORY: acute Low back and radicular pain w/ weakness,spondylolisthesis,m62.81,. TECHNIQUE: Multiplanar multisequence MRI of the Lumbar spine was performed. COMPARISON: CR XR DEXA BONE DENSITY W/WO MEGAN from 02/07/2023 CR XR LUMBAR SPINE COMPLETE from 10/11/2023 CR XR LUMBAR SPINE FLEX/EXT ONLY from 10/21/2023 FINDINGS: Bones: The last intervertebral disc space is designated the L5/S1 level for the numbering purpose of this examination. There are compression fracture deformities of L1, L2 and L3. There is mild incre ased signal seen on the STIR images in the L1 and L3 vertebral body which may be subacute. The L1 ve rtebral body compression fracture has progressed since the DEXA scan from 02/07/2023. Grade 1 spondylo listhesis of L3 on L4. Degenerative endplate signal changes are seen at multiple levels of the lumbar spine. Cord: The conus tip ends at the T12 level. It is of normal size and signal intensity. T12-L1: No disc herniations or bulges are present. No central spinal canal or neural foraminal stenos is. L1-2: No disc herniations or bulges are present. No significant central spinal canal stenosis. There is mild narrowing of the neural foramen bilaterally. L2-3: There is a mild diffuse disc bulge. Degenerative changes of the facets are seen. No significa nt central spinal canal stenosis. There is mild bilateral neural foraminal stenosis. L3-4: There is a diffuse disc bulge. There are degenerative changes of the facets and ligamentum fla vum. Marked central spinal canal stenosis is present. There is moderate left neural foraminal steno sis. No significant right neural foraminal stenosis. L4-5: There is a diffuse disc bulge. There are hypertrophic changes of the facets and ligamentum fla vum. Zlnd-[id number] central spinal canal stenosis is seen. Moderate bilateral neural foraminal st enosis is present. L5-S1: There is a mild diffuse disc bulge. There are degenerative changes of the facets. No signifi cant central spinal canal stenosis is present. No significant neural foraminal stenosis is seen. Soft tissues: The visualized SI joints and sacrum are well maintained. The paraspinal soft tissues ar e unremarkable. Visualized abdominal organs: There is a cyst on the right kidney. No follow-up is recommended. IMPRESSION: 1. Compression fracture deformities of L1 through L3. There has been progression of the L1 compressi on fracture since February 2023. 2. Multilevel degenerative changes in the lumbar spine. The findings are most marked at L3-L4 where there is marked central spinal canal stenosis. Please see the above discussion for complete details. DATA REPOSITORY:
== END ==
PROVIDERS: PCP Family Medicine; Visit Provider Family Medicine
DX: M43.16 Spondylolisthesis, lumbar region (principal); M54.16 Radiculopathy, lumbar region; M62.81 Muscle weakness (generalized); M48.061 Spinal stenosis, lumbar region without neurogenic claudication; S32.010A Wedge compression fracture of first lumbar vertebra, initial encounter for closed fracture
CPT/HCPCS: 72148

== ENCOUNTER 2023-11-04 02:29 | Outpatient (CLI) | payer MEDICARE, SELFPAY ==
[2023-11-04 07:36] LABS: Abs Immature Grans 0.01 10^3/uL (0.0-0.06); Absolute Basophil Count 0.04 10^3/uL (0.0-0.2); Absolute Eosinophil Count 0.09 10^3/uL (0.0-0.7); Absolute Lymphocyte Count 1.15 10^3/uL (1.2-3.4); Absolute Monocyte Count 0.56 10^3/uL (0.1-0.8); Absolute Neutrophil Count 3.42 10^3/uL (1.2-6.7); Basophils % 0.8 %; Eosinophils % 1.7 %; HGB 12.5 g/dL (11.2-15.7); Immature Grans % 0.2 %; Lymphocytes % 21.8 %; MCH 30.5 pg (27.0-33.0); MCHC 33.8 % (32.0-36.0); MCV 90 fL (80-95); MPV 9.1 fL (8.0-11.0); Monocytes % 10.6 %; Neutrophils % 64.9 %; Platelet Count 245 10^3/uL (130-400); RDW 13.1 % (11.7-14.6); WBC 5.27 10^3/uL (4.4-10.8)
[2023-11-05 13:39] LABS: Albumin 58.6 % (55.8-66.1); Total Protein 6.8 g/dL (6.3-8.2)
== END 2023-11-04 02:30 | disposition home or self-care (01) ==
PROVIDERS: PCP Family Medicine; Visit Provider Family Medicine
DX: S32.010A Wedge compression fracture of first lumbar vertebra, initial encounter for closed fracture (principal); S32.020A Wedge compression fracture of second lumbar vertebra, initial encounter for closed fracture; S32.030A Wedge compression fracture of third lumbar vertebra, initial encounter for closed fracture
CPT/HCPCS: 36415; 84165; 85025

== ENCOUNTER 2023-11-26 09:41 | Emergency (ER) | payer MEDICARE, SELFPAY ==
[2023-11-26 09:59] VITALS: BP 152/81; PULSE 74; RESP 18; O2SAT 99
--- NOTE | 2023-11-26 10:31 | W.ED.GENAD ---
Discharge Plan Disposition Patient Disposition: Home Condition: Stable Discharge Details Chief Complaint: RashLesion Clinical Impression: Rash Primary Care Provider: Sirisha Garcia ED Provider: Prabhjot De La O Home Meds and New Rx's Prescriptions: No Action PhytoMulti See Rx Instructions .ROUTE .COMPLEX Rx Instructions: 2 TABS DAILY; ChrondoCare See Rx Instructions PO DAILY Rx Instructions: 2 TABS PO daily; cholecalciferol (vitamin D3) 25 mcg (1,000 unit) capsule 25 mcg PO DAILY OsteoVantiv See Rx Instructions .ROUTE .COMPLEX Rx Instructions: 1 TAB DAILY; Pro-[place] CoQ10 See Rx Instructions .ROUTE .COMPLEX Rx Instructions: 2 SOFT-GELS DAILY; Calcium Lactate See Rx Instructions .ROUTE .COMPLEX Rx Instructions: 1 TAB DAILY; Magnesium Lactate See Rx Instructions .ROUTE .COMPLEX Rx Instructions: 1 CAP DAILY; Cataplex B See Rx Instructions .ROUTE .COMPLEX Rx Instructions: 1 TAB DAILY; Cataplex E See Rx Instructions .ROUTE .COMPLEX Rx Instructions: 1 TAB DAILY; Bone Builder See Rx Instructions .ROUTE .COMPLEX Rx Instructions: 2 TABS DAILY; Turmeric Forte See Rx Instructions .ROUTE .COMPLEX Rx Instructions: 1 TAB DAILY; Artic Cod Liver Oil See Rx Instructions .ROUTE .COMPLEX Rx Instructions: 2 TSP DAILY; Cataplex C PO triamcinolone acetonide 0.1 % cream 1 applic Topical BID PRN (Reason: rash) Qty: 80 0RF Systane Gel 10 GM gel 10 gm Ophthalmic HS Systane (PF) 1 EACH dropperette 1 ea Ophthalmic DAILY estradiol 0.5 mg tablet See Patient Comments PO .COMPLEX Qty: 30 4RF Rx Instructions: 0.5 mg vaginally twice weekly Discharge Instructions Instructions: Skin Rash ED Additional Instructions: Please follow-up with your primary care physician. Please return to the emergency department for any worsening symptoms HPI General Date/Time Provider Initiated Documentation: 11/26/23 09:42. HPI Narrative: 73-year-old female presents with non itching, non painful rash to both lower extremities, noticed this morning while applying lotion; no involvement of face mouth or eyes; denies systemic symptoms like joint pain or fevers; recently completed course of antibiotics for UTI and has a new pillow that she has been sleeping with between her legs Related Data Home Medications ?Medication ?Instructions ?Recorded ?Confirmed artificial tears(hypromellose) 0.3 10 gm ophthalmic (eye) HS 01/04/18 08/20/24 % eye gel (Systane Gel) peg 400-propylene glycol (PF) 0.4 1 ea ophthalmic (eye) DAILY 04/11/17 11/26/23 %-0.3 % eye drops in a dropperette (Systane (PF)) Artic Cod Liver Oil See Rx Instructions .Route .COMPLEX 04/14/20 11/26/23 Bone Builder See Rx Instructions .Route .COMPLEX 04/14/20 11/26/23 Calcium Lactate See Rx Instructions .Route .COMPLEX 04/14/20 11/26/23 Cataplex B See Rx Instructions .Route .COMPLEX 04/14/20 11/26/23 Cataplex E See Rx Instructions .Route .COMPLEX 04/14/20 11/26/23 ChrondoCare See Rx Instructions PO DAILY 04/14/20 11/26/23 Magnesium Lactate See Rx Instructions .Route .COMPLEX 04/14/20 11/26/23 OsteoVantiv See Rx Instructions .Route .COMPLEX 04/14/20 11/26/23 PhytoMulti See Rx Instructions .Route .COMPLEX 04/14/20 11/26/23 Pro-[place] CoQ10 See Rx Instructions .Route .COMPLEX 04/14/20 11/26/23 Turmeric Forte See Rx Instructions .Route .COMPLEX 04/14/20 11/26/23 cholecalciferol (vitamin D3) 25 25 mcg PO DAILY 04/14/20 11/26/23 mcg (1,000 unit) capsule Cataplex C PO 06/05/21 11/05/23 triamcinolone acetonide 0.1 % 1 applic topical BID PRN rash #80 06/05/21 11/26/23 topical cream grams estradiol 0.5 mg tablet See Rx Instructions PO .COMPLEX 08/20/23 11/26/23 #30 tabs Previous Rx's ?Medication ?Instructions ?Recorded triamcinolone acetonide 0.1 % 1 applic topical BID PRN rash #80 06/05/21 topical cream grams estradiol 0.5 mg tablet See Rx Instructions PO .COMPLEX 08/20/23 #30 tabs Allergies Allergy/AdvReac Type Severity Reaction Status Date / Time Sulfa (Sulfonamide AdvReac Severe MIGRAINES Unverified 11/26/23 10:01 Antibiotics) General Stated Complaint: RashLesion ROCK: 4 Exam Narrative Exam Narrative: alert oriented, resting comfortably tolerating secretions, moist mucus membranes, no oropharygeal abnormalities speaking in full sentences no respiratory distress annular lesions on medial aspect of bilateral lower extremities, ranging in diameter from 2 to 4 cm, central clearing with slightly raised edges, no central necrosis; no petechiae purpura vesicles or bulla, no crepitus; no involvement of mucosal membranes Course Vital Signs Vital signs: Vital Signs Pulse 74 11/26/23 09:59 Respiratory Rate 18 11/26/23 09:59 Blood Pressure 152/81 H 11/26/23 09:59 Pulse Oximetry 99 11/26/23 09:59 Pulse 74 11/26/23 09:59 Respiratory Rate 18 11/26/23 09:59 Respiratory Effort Normal 11/26/23 10:10 Blood Pressure 152/81 H 11/26/23 09:59 Blood Pressure Position Sitting 11/26/23 09:59 Pulse Oximetry 99 11/26/23 09:59 Oxygen Delivery Method Room Air 11/26/23 09:59 Oxygen Flow Rate 0 11/26/23 09:59 Pain Level 0 11/26/23 09:59 Medical Decision Making 73-year-old female presents with non itching, non painful rash to both lower extremities, noticed this morning while applying lotion; no involvement of face mouth or eyes; denies systemic symptoms like joint pain or fevers; recently completed course of antibiotics for UTI and has a new pillow that she has been sleeping with between her legs; multiple annular lesions on medial aspect of bilateral lower extremities, ranging in diameter from 2 to 4 cm, central clearing with slightly raised edges, no central necrosis; no petechiae purpura vesicles or bulla, no crepitus; no involvement of mucosal membranes Consider erythema multiforme in the setting of recent antibiotic use versus erythema marginatum in the setting of streptococcal infection however patient has no oropharyngeal symptoms fevers chills body aches joint pain subcutaneous nodules or cardiac symptomatology to suggest rheumatic fever versus localized urticaria related to environmental contact consider new pillow versus less likely erythema migrans in the setting of disseminated Lyme, no evidence of bacterial infection, lower suspicion for fungal infection given appearance; given nontoxic well-appearing patient will have patient observe over the next couple of days given strict return precautions for any worsening symptoms, will obtain streptococcal swab as well as tick panel while patient is here in department. Instructed patient to consider discontinue using the pillow as this is the most recent environmental change that coincides with anatomical distribution of rash 11: 33 resting comfortably no acute distress strep swab negative. Home care instructions and return precautions given Quality:SDOH Health Related Social Needs: Health related social needs inadequate housing, food insecurity Health related social needs details none PFSH All Active Problems (Updated 11/26/23 @ 11:33 by Prabhjot De La O MD) Rash (Acute) Lumbar stenosis (Acute) Lumbar compression fracture (Acute) Age related osteoporosis (Acute) multiple compression fx Compression fracture of L3 vertebra (Acute) Compression fracture of L2 (Acute) Compression fracture of L1 lumbar vertebra (Acute) Weakness of right quadriceps muscle (Acute) Lumbar radicular pain (Acute) Spondylolisthesis at L3-L4 level (Acute) Low back pain (Acute) Poor sleep pattern (Acute) Cognitive change (Acute) [place] 25/30 on 07/30/23 Strain of extensor muscle at forearm level (Acute) Thyroid disorder (Acute) Family history of malignant neoplasm of thyroid (Acute) Knee pain (Acute) Arthritis of left hip (Acute) Glaucoma (Chronic) Chronic bilateral low back pain (Acute) Palpitations (Acute) 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 (Chronic 07/30/13) small cyst on side of leg - see US XR - mild arthritis Family history of abdominal aortic aneurysm (AAA) (Chronic 04/11/17) Medical History (Updated 11/26/23 @ 11:33 by Prabhjot De La O MD) Osteopenia 08/11 DEXA -1.1/-1.8/-2.1 Osteopenia Migraine Surgical History FA SKIN PUNCH BIOPSY OF RIGHT SHOULDER- SEE REPORT 12/12/10 Colonoscopy - MAC (05/23/16) Family History (Updated 04/14/20 @ 15:28 by Idania Araiza) Mother , age 84 Essential hypertension Hyperlipidemia Stroke Lung cancer Father , age 65 Essential hypertension Heart disease Renal failure Brother Diabetes Essential hypertension Hyperlipidemia Maternal Grandfather No problems noted. Paternal Grandfather Heart disease Cognitive deficits Maternal Grandmother Essential hypertension Stroke Cognitive deficits Paternal Grandmother , CHILDBIRTH No problems noted. Sister Diabetes Sister No problems noted. Sister No problems noted. Brother No problems noted. Son No problems noted. Daughter No problems noted. Other Family history of abdominal aortic aneurysm (AAA) Social History (Updated 06/25/22 @ 16:08 by Lorin Abebe) Smoking/Tobacco Use Status: Never Second Hand Exposure: Yes Smoking risk assessment performed?: Yes Alcohol Intake: never Drug use: Never Substance use type: does not use Caregiver/Support person: No Household members: spouse Housing: house Communication Needs: None Do you need help understanding health information?: Often Pets and animals: No Sexually active: No Do you think of yourself as: straight/heterosexual Current gender identity: female What is your relationship status?: How often do you talk on the phone with friends or family?: three or more times per week How often do you get together with friends or relatives?: twice per week How often do you attend adventist or church services?: decline to answer Do you belong to any clubs or organized social groups?: no Panel score (0-1 are the most socially isolated patients): 2 What type of physical activity do you participate in: walking Kalpana/Restoration: Yarsanism Special kalpana needs: No Seatbelt use: always Helmet use: Yes Helmet use: always Drive intox or ride w/intox courtesy bus driver: No Do you feel safe in your relationship?: Yes Victim of physical abuse: No Victim of emotional abuse: No Victim of sexual abuse: No Would you like helpful sources: No
[2023-11-26 10:55] VITALS: TEMP 36.2
[2023-11-27 08:55] LABS: Lyme Ab w Rflx to Lyme Confirm Negative (Negative)
[2023-11-29 15:31] LABS: Anaplasma phagocytophilum Negative (Negative); B. miyamotoi PCR Negative (Negative); Babesia divergens/MO-1 Negative (Negative); Babesia duncani Negative (Negative); Babesia microti Negative (Negative); Ehrlichia chaffeensis Negative (Negative); Ehrlichia ewingii/canis Negative (Negative); Ehrlichia muris eauclairensis Negative (Negative)
== END 2023-11-26 11:43 | disposition home or self-care (01) ==
PROVIDERS: Emergency Provider Emergency Medicine; PCP Family Medicine
DX: R21 Rash and other nonspecific skin eruption (principal)
CPT/HCPCS: 87798; 87880; 99283; 86618; 87081

== ENCOUNTER 2024-01-13 01:11 | Outpatient (CLI) | payer MEDICARE, SELFPAY ==
--- NOTE | 2024-01-13 11:13 | DI.RAD_ITS ---
Exam(s) XR LUMBAR SPINE FLEX/EXT ONLY EXAM: XR LUMBAR SPINE FLEX/EXT ONLY CLINICAL HISTORY: SPINAL STENOSIS,M48.062,SPONDYLOLISTHESIS L 3-4,M43.16,OSTEOPOROTIC COMP TECHNIQUE: 2D digital imaging was performed. Weight-bearing lateral views in neutral, flexion and e xtension COMPARISON: CR XR LUMBAR SPINE FLEX/EXT ONLY from 10/21/2023 MR MR LUMBAR SPINE WO from 10/31/2023 FINDINGS: Exam is limited by under penetration. Stable L1 compression fracture. Further loss of height of the L2 vertebral body, now approximate 5 0 percent compression. Multilevel degenerative disc changes are noted, greatest at L4-5 further brien re disc space narrowing. Multilevel facet joint degenerative changes. Slight degenerative listhesis at L3-4 again noted. IMPRESSION: Interval worsening of L2 compression fracture, now approximately 50 percent. Stable L1 compression f racture. Degenerative changes throughout.
== END 2024-01-13 01:31 ==
LOC: DI 01:11
PROVIDERS: PCP Family Medicine; Visit Provider Neurological Surgery
DX: M48.062 Spinal stenosis, lumbar region with neurogenic claudication (principal)
CPT/HCPCS: 72120

== ENCOUNTER → 2024-03-24 08:58 | Outpatient (BNVA) | payer MEDICARE, SELFPAY | PROVIDERS: PCP Family Medicine; Referring Provider Family Medicine; Visit Provider Podiatrist | DX: L84 Corns and callosities (principal); M67.01 Short Achilles tendon (acquired), right ankle; M67.02 Short Achilles tendon (acquired), left ankle; M79.671 Pain in right foot; M79.672 Pain in left foot; M54.9 Dorsalgia, unspecified; R09.89 Other specified symptoms and signs involving the circulatory and respiratory systems; L65.9 Nonscarring hair loss, unspecified; L85.8 Other specified epidermal thickening | CPT/HCPCS: 11056; 11719; 99213 ==

== ENCOUNTER 2024-04-17 00:58 | Outpatient (CLI) | payer MEDICARE, SELFPAY ==
[2024-04-17 17:25] LABS: ALT 21 U/L (14-59); AST 19 U/L (15-37); Albumin 3.5 g/dL (3.4-5.0); Alkaline Phosphatase 136 U/L (46-116); BUN 16 mg/dL (7-18); Bilirubin, Total 0.44 mg/dL (0.2-1.0); CREATININE 0.7 mg/dL (0.55-1.02); Calcium 9.3 mg/dL (8.5-10.1); Chloride 98 mmol/L (98-107); Estimated GFR 91.26 (mL/min/1.73m2); Glucose 99 mg/dL (74-106); Potassium 4.1 mmol/L (3.5-5.1); Sodium 134 mmol/L (136-145); Total Protein 7.6 g/dL (6.4-8.2)
== END 2024-04-17 00:59 | disposition home or self-care (01) ==
LOC: LBO 00:58
PROVIDERS: PCP Family Medicine; Visit Provider Family Medicine
DX: E87.1 Hypo-osmolality and hyponatremia (principal)
CPT/HCPCS: 36415; 80053

== ENCOUNTER 2024-05-13 01:14 | Outpatient (CLI) | payer MEDICARE, SELFPAY ==
[2024-05-13 11:09] LABS: BUN 14 mg/dL (7-18); CREATININE 0.6 mg/dL (0.55-1.02); Calcium 9.5 mg/dL (8.5-10.1); Chloride 99 mmol/L (98-107); Estimated GFR 94.72 (mL/min/1.73m2); Glucose 80 mg/dL (74-106); PHOSPHORUS 3.8 mg/dL (2.6-4.7); Sodium 139 mmol/L (136-145)
== END 2024-05-13 01:15 | disposition home or self-care (01) ==
LOC: LBO 01:14
PROVIDERS: PCP Family Medicine; Visit Provider Family Medicine
DX: M81.0 Age-related osteoporosis without current pathological fracture (principal); E87.1 Hypo-osmolality and hyponatremia
CPT/HCPCS: 36415; 80048; 84100

== ENCOUNTER → 2024-07-08 09:41 | Outpatient (BNVA) | payer MEDICARE, SELFPAY | PROVIDERS: PCP Family Medicine; Referring Provider Family Medicine; Visit Provider Podiatrist ==

== ENCOUNTER 2024-08-11 02:05 | Outpatient (CLI) | payer MEDICARE, SELFPAY ==
[2024-08-11 08:29] LABS: ALT 30 U/L (14-59); AST 23 U/L (15-37); Albumin 3.7 g/dL (3.4-5.0); Alkaline Phosphatase 107 U/L (46-116); Anion Gap 6.6 mmol/L (3-11); BUN 14 mg/dL (7-18); Bilirubin, Total 0.7 mg/dL (0.2-1.0); CO2 28.4 mmol/L (21.0-32.0); CREATININE 0.6 mg/dL (0.55-1.02); Calcium 9.2 mg/dL (8.5-10.1); Chloride 99 mmol/L (98-107); Estimated GFR 94.72 (mL/min/1.73m2); Glucose 87 mg/dL (74-106); Magnesium 1.8 mg/dL (1.8-2.4); Potassium 4.2 mmol/L (3.5-5.1); Sodium 134 mmol/L (136-145); Total Protein 7.5 g/dL (6.4-8.2)
== END 2024-08-11 02:06 | disposition home or self-care (01) ==
PROVIDERS: PCP Family Medicine; Visit Provider Family Medicine
DX: E87.1 Hypo-osmolality and hyponatremia (principal); R74.8 Abnormal levels of other serum enzymes
CPT/HCPCS: 36415; 80053; 83735

== ENCOUNTER 2024-11-19 03:45 | Outpatient (CLI) | payer MEDICARE, SELFPAY ==
[2024-11-19 09:20] LABS: Anion Gap 8.9 mmol/L (3-11); BUN 13 mg/dL (7-18); CO2 28.1 mmol/L (21.0-32.0); Calcium 9.0 mg/dL (8.5-10.1); Chloride 99 mmol/L (98-107); Estimated GFR 98.36 (mL/min/1.73m2); Glucose 87 mg/dL (74-106); Magnesium 2.0 mg/dL (1.8-2.4); Potassium 4.0 mmol/L (3.5-5.1); Sodium 136 mmol/L (136-145)
== END 2024-11-19 03:46 | disposition home or self-care (01) ==
LOC: LBO 03:45
PROVIDERS: PCP Family Medicine; Visit Provider Family Medicine
DX: E87.1 Hypo-osmolality and hyponatremia (principal); E87.8 Other disorders of electrolyte and fluid balance, not elsewhere classified
CPT/HCPCS: 36415; 80048; 83735

== ENCOUNTER → 2024-12-09 09:31 | Outpatient (BNVA) | payer MEDICARE, SELFPAY | PROVIDERS: PCP Family Medicine; Referring Provider Family Medicine; Visit Provider Podiatrist ==

== ENCOUNTER → 2025-01-04 08:13 | Outpatient (BNVA) | payer MEDICARE, SELFPAY | PROVIDERS: PCP Family Medicine; Referring Provider Family Medicine; Visit Provider Student in an Organized Health Care Education/Training Program | DX: M67.431 Ganglion, right wrist (principal) | CPT/HCPCS: 99213 ==

== ENCOUNTER 2025-01-12 12:26 | Day surgery (SDC) | payer MEDICARE, SELFPAY ==
--- NOTE | 2025-01-12 12:26 | PDOC.DSDIS_ITS ---
Date of service: 01/12/25 Discharge Plan Disposition Patient Disposition: Home Condition: Good Discharge Details Reason For Visit: Right wrist cyst Attending Provider: Anant Hartley Primary Care Provider: Sirisha Garcia Home Meds and New Rx's Prescriptions: Continued ChrondoCare See Rx Instructions PO DAILY Rx Instructions: 2 TABS PO daily; OsteoVantiv See Rx Instructions .ROUTE .COMPLEX Rx Instructions: 1 TAB DAILY; Calcium Lactate See Rx Instructions .ROUTE .COMPLEX Rx Instructions: 1 TAB DAILY; Cataplex B See Rx Instructions .ROUTE .COMPLEX Rx Instructions: 1 TAB DAILY; Cataplex E See Rx Instructions .ROUTE .COMPLEX Rx Instructions: 1 TAB DAILY; Turmeric Forte See Rx Instructions .ROUTE .COMPLEX Rx Instructions: 1 TAB DAILY; Artic Cod Liver Oil See Rx Instructions .ROUTE .COMPLEX Rx Instructions: 2 TSP DAILY; Pro-[place] CoQ10 See Rx Instructions .ROUTE .COMPLEX Rx Instructions: 1 SOFT-GELS DAILY; PhytoMulti See Rx Instructions .ROUTE .COMPLEX Rx Instructions: 1 TABS DAILY; Bone Builder See Rx Instructions .ROUTE .COMPLEX Rx Instructions: 2 TABS DAILY; 1 TAB QHS Magnesium Lactate See Rx Instructions .ROUTE .COMPLEX PRN Rx Instructions: 2 CAP DAILY; PRN; triamcinolone acetonide 0.1 % cream 1 applic Topical BID PRN (Reason: rash) Qty: 80 0RF Cataplex C PO Rx Instructions: 1 tab cholecalciferol (vitamin D3) 125 mcg (5,000 unit) capsule 125 mcg PO .M-F estradiol 0.5 mg tablet See Patient Comments PO .COMPLEX Qty: 30 4RF Rx Instructions: 0.5 mg vaginally weekly Mg/K Aspartate See Rx Instructions PO DAILY Rx Instructions: 100mg/160mg orally daily; Garlic Forte 70 mg PO DAILY doxycycline hyclate 100 mg tablet 200 mg PO ONCE Qty: 2 0RF Systane Gel 10 GM gel 10 gm Ophthalmic HS Systane (PF) 1 EACH dropperette 1 ea Ophthalmic DAILY Discharge Instructions Additional Instructions: Cyst Excision Discharge Instructions Activity: You should keep the hand elevated as much as possible for the first few days. You may use the other fingers as tolerated but avoid trying to do too much too soon. You may perform light activities with the dressing in place. Dressing: Your dressing should stay in place at all times. Do NOT get it wet. You may loosen the SAFIA wrap if you feel it is too tight and then rewrap more loosely. After 24 hours you may remove dressing, keep incision clean and apply a clean gauze dressing or bandaide. Medications: - You should take Tylenol and Ibuprofen for baseline pain control. - You may apply ice over the area. Follow-up: 7-10 days Stand Alone Forms: Tari Trujillo ([facility]) Referrals: Anant Hartley MD [ [facility] STAFF PHYSICIAN, Orthopaedic Surgical] - 01/22/25 8:15 am Activity:: Elevate Remove Dressings/Wound Care:: 24 hours Shower/Bathe:: 24 hours Diet:: As Tolerated Discharge Orders Discharge Orders: Discharge Order (Routine); Ordered 01/12/25 Ordered By: Michelle Baez
[2025-01-12 12:43] VITALS: BP 141/69; PULSE 74; RESP 16; TEMP 36.5; O2SAT 100
[2025-01-12] MEDS: Sodium Bicarbonate 50 MEQ/50 ML VIAL (14:18)
[2025-01-12] MEDS: Lidocaine 1% Multi-Dose W/EPI 1/100,000 50 ML VIAL (14:18)
[2025-01-12 14:29] VITALS: BP 133/74; PULSE 74; RESP 14; TEMP 36.3; O2SAT 98
--- NOTE | 2025-01-12 14:41 | W.PM.OP ---
Operative Note Operative Note PRE-OP DIAGNOSIS: Right Volar Wrist Ganglion Cyst POST-OP DIAGNOSIS: same PROCEDURE: Excision of volar wrist ganglion cyst - Right wrist SURGEON: Anant Hartley ANESTHESIA TYPE: Local By Surgeon Refer to Anesthesia Record ESTIMATED BLOOD LOSS: 0 PATHOLOGY: none sent COMPLICATIONS: None Patient was transported to: same day Patient's condition: stable Indications: Dora is a 74 year old female who I have seen for a volar wrist ganglion cyst. It has continued to be bothersome despite some conservative options. Its size and interference with activities continues to cause problems. Therefore, I offered excision of the volar wrist cyst. I discussed the risks to include bleeding, infection, pain, stiffness, damage to nerve and vessels, recurrence. Despite these risks, she elects to proceed. Findings: There is a cyst with 2 main components resting in the subcutaneous tissues adjacent to the flexor carpi radialis of the volar right wrist, removed without difficulty. Procedure Description: Dora was greeted in the preoperative holding area. Identity was confirmed and the correct site was identified and marked. Consent was reviewed the patient and signed. The patient to take not to the operating room placed in supine position. All bony prominences were well-padded. A nonsterile tourniquet was placed high up onto the right arm. The arm was prepped with ChloraPrep and draped in a standard fashion. The surgical site was marked on the skin and injected with 1% lidocaine with epinephrine buffered with sodium bicarbonate. The skin was incised sharply directly over the cyst. Deeper dissection was carried out with tenotomy scissors. The cyst was immediately encountered. The cyst was deflated and typical thick, clear cystic fluid was evacuated and irrigated out. The cyst structure was resected from the volar wrist tissues. There was no notable extension of the cyst deep to the carpus as it laid solely in the tissues adjacent to the flexor carpi radialis. It was removed. The wound was once again irrigated. No other remnant cystic structure was identified. The wound was then thoroughly irrigated once again. The deep layer was reapproximated with a 3-0 Vicryl. The skin was closed with a running 4-0 Monocryl followed by skin glue, gauze, and Jorge wrap. At the end the case all counts were correct. The patient was awakened from anesthesia and taken to the [facility] in stable condition. There were no noted complications. Date of Procedure: 01/12/25
== END 2025-01-12 14:42 | disposition home or self-care (01) ==
PROVIDERS: PCP Family Medicine; Visit Provider Student in an Organized Health Care Education/Training Program
PROC: (CPT 25111; principal; 2025-01-12 15:15)
DX: M67.431 Ganglion, right wrist (principal)
CPT/HCPCS: 25111; J2004

== ENCOUNTER → 2025-01-22 08:11 | Outpatient (BNVA) | payer MEDICARE, SELFPAY | PROVIDERS: PCP Family Medicine; Referring Provider Family Medicine; Visit Provider Physician Assistant | DX: Z47.89 Encounter for other orthopedic aftercare (principal); M67.431 Ganglion, right wrist | CPT/HCPCS: 99024 ==

== ENCOUNTER → 2025-02-11 01:40 | Outpatient (CLI) | payer MEDICARE, SELFPAY ==
--- NOTE | 2025-02-11 06:00 | DI.MAMMO_ITS ---
Exam(s) MAMMO SCREENING EXAM: MAMMO SCREENING CLINICAL HISTORY: screening,z12.39 TECHNIQUE: Bilateral full field digital CC and MLO mammographic images were obtained with 3D tomosynthesis and utilizing computer aided detection (CAD). COMPARISON: Comparison is made with prior examinations. FINDINGS: Masses/Architectural Distortion: No suspicious masses or areas of architectural distortion are present. Microcalcifications: No suspicious pleomorphic-type are seen. Skin Thickening/Nipple Retraction: None. IMPRESSION: 1. No significant interval change with no specific features of malignancy noted. 2. Unless there is more urgent need, screening mammography is recommended, as per [place] [employer] guidelines. BI-RADS Category 1 - Negative Breast Density - Category B - There are scattered areas of fibroglandular density. Breast density Category C or D implies that the patient has dense breast tissue. Dense breast tissue can make it harder to find cancer on a mammogram. Dense breast tissue is also associated with an increased risk of breast cancer. This information about the result of the mammogram report was provided to the patient to raise their awareness. Use this report when you speak with the patient about their risks for breast cancer, which includes their family history. At that time, you may recommend additional screening tests (Ultrasound or MRI) as these tests may add significant information. A negative radiographic report should not delay biopsy if a dominant or clinically suspicious mass is present. Up to ten percent of cancers are not identified on mammography. A negative report may reinforce clinical impression. Adenosis and dense breasts may obscure an underlying neoplasm. False positive reports average 6 to 10%. Patient will receive a letter notifying them of these results.
--- NOTE | 2025-02-11 06:00 | DI.DEXA_ITS ---
Exam(s) XR DEXA BONE DENSITY W/WO MEGAN EXAM: XR DEXA BONE DENSITY W/WO MEGAN CLINICAL HISTORY: post menopausal status,z78.0 TECHNIQUE: COMPARISON: CR XR DEXA BONE DENSITY W/WO MEGAN from 02/07/2023 FINDINGS: Lateral Spine Image: There thoracic and lumbar compression fracture deformities again seen. Left hip: Total T-Score: -3.0. There has been a decrease in the bone mineral density. This compares with a total T-score of -2.4 on the prior examination. Total Z-Score: -1.3 T- and Z-scores: Findings are consistent with osteoporosis. Lumbar Spine: Total T-Score: -3.4. This compares to -3.0 on the prior examination. Total Z-Score: -1.0 T- and Z-scores: Findings are consistent with osteoporosis. There is osteoporosis in the left forearm with a total T-score of -3.5 and a Z- score of -1.1. IMPRESSION: Osteoporosis in the left hip, lumbar spine and left forearm.
== END ==
LOC: DI 01:40
PROVIDERS: PCP Family Medicine; Visit Provider Family Medicine
DX: Z12.31 Encounter for screening mammogram for malignant neoplasm of breast (principal); Z78.0 Asymptomatic menopausal state
CPT/HCPCS: 77063; 77067; 77080

== ENCOUNTER 2025-02-16 00:44 | Outpatient (CLI) | payer MEDICARE, SELFPAY ==
[2025-02-16 08:44] LABS: Vitamin D 25 Total 50 ng/mL (30-100)
== END 2025-02-16 00:45 | disposition home or self-care (01) ==
LOC: LBO 00:44
PROVIDERS: PCP Family Medicine; Visit Provider Family Medicine
DX: E55.9 Vitamin D deficiency, unspecified (principal)
CPT/HCPCS: 36415; 82306